=== PATIENT | male | born 1980 | race Caucasian/White ===

== ENCOUNTER 2018-09-06 05:45 | Emergency (ER) | payer OTHER ==
[2018-09-06 06:19] VITALS: BP 113/72; PULSE 89; TEMP 97.6; BMI 28.5
--- NOTE | 2018-09-06 07:28 | PDOC ---
History of Present Illness - General Chief Complaint: Injury Stated Complaint: FALL Time Seen by Provider: 09/06/18 07:20 - History of Present Illness Initial Comments: The pt is a 38M w/ no reported PMH who presents s/p fall. The pt reports painting his apartment while on a ladder while intoxicated ([place]). He slipped and fell from the ladder and lost consciousness for what he thinks was a few minutes. He reports waking, noticing blood around his mouth, jaw pain, and L ankle pain. He denies any changes in sensation or strength, only noticed a small laceration to his left upper lip, and noted L ankle pain/swelling but has been able to ambulate since that time. Denies change in vision, chest pain, trouble breathing, vomiting, abdominal pain , or other injury 09/06/18 08:14 Past History - Past Medical History Allergies/Adverse Reactions: Allergies Allergy/AdvReac Type Severity Reaction Status Date / Time No Known Allergies Allergy Verified 09/06/18 06:16 Home Medications: Ambulatory Orders NK [No Known Home Medication] 09/06/18 COPD: No - Immunization History Immunization Up to Date: Yes - Suicide/Smoking/Psychosocial Hx Smoking History: Never smoked Have you smoked in the past 12 months: No Information on smoking cessation initiated: No Hx Alcohol Use: Yes Drug/Substance Use Hx: No Review of Systems - Review of Systems Able to Perform ROS?: Yes Comments:: GENERAL/CONSTITUTIONAL: No fever or chills. No weakness HEAD, EYES, EARS, NOSE AND THROAT: No change in vision. No ear pain or discharge. No sore throat CARDIOVASCULAR: No chest pain or shortness of breath RESPIRATORY: Denies cough, hemoptysis GASTROINTESTINAL: No nausea, vomiting, diarrhea or constipation GENITOURINARY: No dysuria, frequency, or change in urination SKIN: L upper lip lac NEUROLOGIC: No vertigo or change in strength/sensation HEMATOLOGIC/LYMPHATIC: No anemia, easy bleeding, or history of blood clots ALLERGIC/IMMUNOLOGIC: No hives or skin allergy 09/06/18 08:17 Is the patient limited French proficient: No *Physical Exam - Vital Signs Last Vital Signs Temp Pulse Resp BP Pulse Ox 97.6 F 89 20 113/72 99 09/06/18 06:16 09/06/18 06:16 09/06/18 06:16 09/06/18 06:16 09/06/18 06:16 - Physical Exam Comments: GENERAL: Awake, alert, and oriented to person/place/time, in no acute distress HEAD: L upper lip stellate laceration approximately 0.5 cm x 0.5cm EYES: PERRLA, EOMI, sclera anicteric, conjunctiva clear ENT: Hearing grossly normal, nares patent. Moist mucosa, Intra-oral maxiallary lip abrasion (likely 2/2 teeth) w/o through and through injury LUNGS: No distress, speaks full sentences, clear to auscultation bilaterally HEART: Regular rate and rhythm, normal S1 and S2, no murmurs appreciated, peripheral pulses normal and equal bilaterally ABDOMEN: Soft, nontender, normoactive bowel sounds. No guarding, no rebound EXTREMITIES: Normal inspection, Normal range of motion, no edema. No clubbing or cyanosis NEUROLOGICAL: Cranial nerves II through XII grossly intact. Normal speech, normal gait, no focal sensorimotor deficits SKIN: L upper lip stellate laceration approximately 0.5 cm x 0.5cm 09/06/18 08:17 Moderate Sedation - Procedure Monitoring Vital Signs: Procedure Monitoring Vital Signs Temperature 97.6 F 09/06/18 06:16 Pulse Rate 89 09/06/18 06:16 Respiratory Rate 20 09/06/18 06:16 Blood Pressure 113/72 09/06/18 06:16 O2 Sat by Pulse Oximetry (%) 99 09/06/18 06:16 Procedures - Laceration/Wound Repair Left Upper Lip Wound Length: to 2.5 cm Wound Explored: clean Wound's Depth, Shape: superficial, stellate Irrigated w/ Saline: Yes Anesthesia: 1% Lidocaine Amount of Anesthetic (ccs): 1 Wound Repaired With: Sutures Suture Size/Type: 6:0, proline Number of Sutures: 4 Layer Closure: No Sterile Dressing Applied: Yes Medical Decision Making - Medical Decision Making The pt is a 38M w/ no reported PMH who presents s/p fall from ladder while intoxicated w/ LOC, L upper lip laceration, and L ankle pain/swelling ED Course CT Head L foot/ankle XR Tylenol 975mg PO once for pain 09/06/18 08:23 CT w/o acute pathology Plain films w/o acute fx or dislocation Lip laceration closed with 4 6-0 Prolene Wound care instructions provided Plan for D/C w/ PCP f/u Discharge instructions and return precautions given Patient in agreement and verbalized understanding Dispo: home 09/06/18 10:32 *DC/Admit/Observation/Transfer Diagnosis at time of Disposition: Lip laceration Qualifiers: Encounter type: initial encounter Qualified Code(s): S01.511A - Laceration without foreign body of lip, initial encounter - Discharge Dispostion Disposition: HOME Condition at time of disposition: Improved Decision to Admit order: No - Referrals Referrals: Maite Wiley MD [Staff Physician] - - Patient Instructions Printed Discharge Instructions: DI for Laceration Repair -- Simple Additional Instructions: You were seen in the Emergency Department for evaluation after falling from a ladder. You laceration was sutured with 4 prolene sutures and will need to be removed in 7-10 days. For wound care, wash the wound every day with soap and water. Pat dry. You may place a dry dressing if needed. For the first 2 [address] bacitracin on the wound. Return to your PCP or the ED to have the sutures removed. Return to the Emergency Department if you develop fevers/chills , purulent drainage from the wound. increased redness or pain, confusion, vomiting, changes in sensation or strength, or any new/concerning symptoms. - Post Discharge Activity
--- NOTE | 2018-09-06 07:42 | PDOC ---
Attending Attestation - Resident Resident Name: JenniferEarl de - ED Attending Attestation I have performed the following: I have examined & evaluated the patient, The case was reviewed & discussed with the resident, I agree w/resident's findings & plan, Exceptions are as noted - HPI HPI: 09/06/18 10:54 Reviewed Residents HPI - Physicial Exam PE: 09/06/18 10:55 Reviewed Residents PE - Medical Decision Making 09/06/18 10:54 38 years old with mechanical slip and fall off ladder positive LOC Head CT performed no acute pathology noted patient also with some ankle discomfort x-ray performed no acute fracture dislocation Lip laceration sutured with good approximation Patient may aware of scar. Findings, the need for follow-up and strict return instructions discussed with patient.
[2018-09-06] MEDS ORDERED: ACETAMINOPHEN 325 MG TABLET (FP) PO ONE (07:46)
[2018-09-06] MEDS ORDERED: ACETAMINOPHEN 325 MG TABLET (FP) ONE (07:52)
[2018-09-06] MEDS ORDERED: DIPHTH,PERTUSS(ACELL),TET 0.5 ML DISP.SYRIN IM ONE ×2 (09:03→09:06)
== END 2018-09-06 11:06 | disposition home or self-care (01) ==
LOC: JER 05:45
PROC: 0CQ0XZZ Repair Upper Lip, External Approach (ICD-10-PCS; principal; 2018-09-06)
PROC: 3E0234Z Introduction of Serum, Toxoid and Vaccine into Muscle, Percutaneous Approach (ICD-10-PCS; 2018-09-06)
DX: S01.511A Laceration without foreign body of lip, initial encounter (principal); W11.XXXA Fall on and from ladder, initial encounter; Y93.E9 Activity, other interior property and clothing maintenance; Y92.038 Other place in apartment as the place of occurrence of the external cause; Y99.8 Other external cause status; F10.120 Alcohol abuse with intoxication, uncomplicated
CPT/HCPCS: 70450-TC; 73610-TC-LT-FY; 73630-TC-LT; 90715; 99284-25